=== PATIENT | female | born 1985 | race Caucasian/White ===

== ENCOUNTER 2016-11-10 13:11 | Emergency (ER) | payer OTHER ==
[~2016-11-10] VITALS: Ht 167.6 cm; Wt 83.9 kg
[2016-11-10 13:17] VITALS: BP_SYST 119
[2016-11-10] MEDS ORDERED: AZITHROMYCIN 250 MG TABLET PO ONE (13:45)
[2016-11-10] MEDS ORDERED: BACITRACIN 1 GM OINT TP ONE (13:45)
[2016-11-10] MEDS ORDERED: IBUPROFEN 800 MG TABLET PO ONE (13:45)
[2016-11-10] MEDS ORDERED: DIPH-TET-PERTUS Vaccine 0.5 ML VIAL (ADACEL) IM ONE (14:45)
[2016-11-10 15:04] VITALS: BP_SYST 130
== END 2016-11-10 15:04 | disposition home or self-care (01) ==
LOC: SED 13:11
DX: S61.511A Laceration without foreign body of right wrist, initial encounter (principal); S61.316A Laceration without foreign body of right little finger with damage to nail, initial encounter; Z88.0 Allergy status to penicillin; X58.XXXA Exposure to other specified factors, initial encounter; Y93.89 Activity, other specified; Y92.89 Other specified places as the place of occurrence of the external cause; Y99.8 Other external cause status
CPT/HCPCS: 12002; 73100; 73130; 90471; 90715; 99284; Q0144